=== PATIENT | female | born 1995 | race Caucasian/White ===

== ENCOUNTER 2019-09-25 07:39 | Day surgery (SDC) | payer OTHER ==
[~2019-09-25] VITALS: Ht 162.6 cm; Wt 57.7 kg
[2019-09-25 08:29] VITALS: BP 96/65; PULSE 68; TEMP 97.6
[2019-09-25] MEDS ORDERED: NATURAL IRON65 MG PO (10:46)
[2019-09-25] MEDS ORDERED: CEPHALEXIN500 M1 PO (10:46)
[2019-09-25 10:48] VITALS: BP 116/67; PULSE 70; TEMP 97.7
--- NOTE | 2019-09-25 10:48 | NUR ---
Patient brought back to [facility] via cart from PACU. Placed on monitors, vital signs stable. Report recieved from Kaycee CHATMAN. Patient alert and oriented. Denies any pain or nausea. Ambulated to bathroom without difficulty. Was able to void with minimal blood noted. Patient states she is also on her menses so it was difficult to tell origin. All safety maintained, will continue to monitor.
[2019-09-25 11:00] VITALS: BP 123/65; PULSE 76
--- NOTE | 2019-09-25 11:00 | NUR ---
Patient is requesting toast and juice at this time. Will conitnue to monitor.
[2019-09-25 11:15] VITALS: BP 109/65; PULSE 72
--- NOTE | 2019-09-25 11:15 | NUR ---
Patient is tolerating food and drink without difficulty. States she feels ready to go home at this time.
--- NOTE | 2019-09-25 11:30 | NUR ---
Discharge instructions reviewed with patient. All questions answered. Made patient aware that office will call to follow up. Office number provided in case of questions. IV removed without difficulty. Patient to get dressed at this time.
--- NOTE | 2019-09-25 11:55 | NUR ---
Patient brought down to lobby via wheel chair. met at front. to drive patient home.
== END 2019-09-25 11:55 | disposition home or self-care (01) ==
LOC: SDCO 07:39
DX: N13.2 Hydronephrosis with renal and ureteral calculous obstruction (principal); E28.2 Polycystic ovarian syndrome; Z79.899 Other long term (current) drug therapy
CPT/HCPCS: C1769; J0690; J2405; J2704; J3010; J7120; Q9967